=== PATIENT | female | born 1985 | race Caucasian/White ===

== ENCOUNTER 2017-04-11 00:39 | Emergency (ER) | payer OTHER ==
[~2017-04-11] VITALS: Ht 165.1 cm; Wt 45.5 kg
[~2017-04-11 00:39] MED LIST: DOCU-41 PO; DOCU240C41 PO; IBUP-1827 PO; LORA5SOL82 PO; METH10SO PO; METH40TA2 PO; OXYC-474 PO; POLY17PO6 PO; TRAZ-118 PO
[2017-04-11 00:43] VITALS: BP 113/76; PULSE 91; RESP 16; O2SAT 99
--- NOTE | 2017-04-11 00:52 | ED.REPORT ---
HPI-Dental/Mouth Prob Date of Service Apr 11, 2017 ED Provider: Titus Donahue MD A 32 year old female with a history of wisdom tooth surgery presents to the ED complaining of right-sided dental pain. The pt noticed the pain five days ago followed by right cheek swelling and drainage from the area. She is now concerned that she may have an abscess. Tylenol and ibuprofen have not significantly relieved her pain. The pt had arranged follow up with the [facility] to have teeth pulled, but did not make her appointment. Nursing Notes Stated Complaint: DENTAL PAIN Chief Complaint: Dental Nursing Notes Reviewed: Yes Allergies: Coded Allergies: No Known Allergies (Unverified , 03/17/15) Scheduled Amoxicillin (Amoxicillin) 500 Mg Capsule 500 MG PO TID Famotidine (Pepcid) 20 Mg Tablet 20 MG PO BID Fluconazole (Diflucan) 150 Mg Tablet 150 MG PO ONCE Loratadine (Loratadine) 5 Mg/5 Ml (5 Ml) Solution 10 MG PO DAILY Methadone (Methadone) 40 Mg Tablet.basil 88 MG PO DAILY Trazodone (Trazodone) 100 Mg Tablet 100 MG PO HS Scheduled PRN Docusate Calcium (Stool Softener) 240 Mg Capsule 250 MG PO BID PRN PRN For Constipation Docusate Sodium (Colace) 100 Mg Capsule 100 MG PO BID PRN PRN For Constipation Ibuprofen (Ibuprofen) 600 Mg Tablet 600 MG PO Q6H PRN PRN For Pain Methadone (Methadone) 10 Mg/5 Ml Solution 115 MG PO DAILY PRN PRN For Opiate Reversal Naproxen (Naprosyn) 500 Mg Tablet 500 MG PO BID PRN PRN For Pain Oxycodone (Roxicodone) 5 Mg Tablet 5-10 MG PO Q4H PRN PRN For Pain Polyethylene Glycol 3350 (Miralax) 17 Gm Powd.pack 17 GM PO TID PRN PRN prn General Time Seen by : 00:47 Chief Complaint Mouth pain Hx Obtained From: Patient Arrived By: Walk-in Onset Occurred: 5 days ago Symptom Duration: Since onset Recent Healthcare: No recent hospitalization, Recent doctor visit Past Medical History Past Medical History IBS sacroiliitis Reports: Asthma Past Surgical History Barney teeth removed Reports: Tonsillectomy Family History Father of ID Smoking History Current Every Day Smoker Social History Alcohol Use: Denies alcohol use Drug Use: In recovery, IV drugs Other Social History: Good social support Ambulatory Status Independent Review of Systems Review of Systems Note: tooth pain with drainage cheek swelling Respiratory: Denies: Non-productive cough, Shortness of breath GI: Denies: Abdominal pain, Vomiting Complete sys rev & neg: except as marked. Physical Exam Initial Vital Signs Vital Signs (First) Date Time Temp Pulse Resp B/P Pulse Ox O2 Delivery O2 Flow Rate FiO2 04/11/17 00:43 36.1 91 16 113/76 99 Room Air Initial VS: Reviewed ENT: Airway patent, Mucous membranes moist all teeth carious and rotting, most down to the gumline small abscess of lower right jaw no palpable abnormalities on floor of mouth no adenopathy or fluctuance Neck: Atraumatic, Supple, Full range of motion General/Constitutional: Awake, Alert Head / Eyes: Atraumatic, Normocephalic, PERRL, EOMI Respiratory / Chest: Atraumatic, Breath sounds NL, Breath sounds = bilat, No respiratory distress Cardiovascular: Heart rate NL, Regular rhythm, Heart sounds NL Neurologic: Oriented X3, Speech NL, No motor deficits, No sensory deficits Abdomen: Atraumatic, Soft, Non-tender Back: Atraumatic, Full range of motion Upper Extremity / MS: Atraumatic, Full range of motion Lower Extremity / Pelvis / MS: Atraumatic, Full range of motion Skin: Atraumatic, Color NL, No rash, Warm, Dry Psychiatric: Affect NL, Mood NL Re-Eval/Medical Decision Med Decision/Clinical Course 32-year-old with multiple carious teeth presents with a small abscess in the lower right, and apparent auto drainage. She has had foul discharge that is resulted in decrease in size of her swelling on her right lower jaw. There is no trismus no compromise of the medial tissues of the throat, no fluctuance or tenderness at the base of the tongue and normal excursion and protrusion. Home With amoxicillin. Toradol and Decadron given tonight. Ongoing Naprosyn. Follow up with dentist NABILA. Source of Hx: Old records Re-Evaluation/Progress : Time of Eval: 00:47 Patient Status: Condition improved Re-Evaluation/Progress Note: Pt informed of the diagnosis and plan for discharge during the initial interview. The pt understands and agrees with the plan. All questions are addressed at this time. Counseled Regarding: Diagnosis, Need for follow-up, When/why to return to ED Discharge & Departure Primary Impression: Dental abscess Disposition: Home Discharge Condition All VS Reviewed: Yes Condition: Stable Patient Instructions: Dental Abscess (ED) Additional Instructions: I suggest you proceed with your plan to be seen at [facility] for extractions. However, you should see your local dentist regarding this particular flare. Amoxicillin three times daily for fourteen days. Naprosyn twice daily for pain. Return for any difficulty with swallowing, breathing, or other new symptoms of concern Referrals: [facility] Scribe Attestation Portions of this note were transcribed by Rich Falk. I, Dr. Donahue personally performed the history, physical exam and medical decision-making; I reviewed and confirmed the accuracy of the information in the transcribed note. Signed by: Nereida Mcgovern, 04/11/2017 and 0203. copies to: [facility] Titus Donahue MD Apr 11, 2017 00:51 RICH FALK Apr 11, 2017 01:00
[2017-04-11] MEDS ORDERED: Dexamethasone 20 mg/2 mL Oral Solution PO ONE (01:00)
[2017-04-11] MEDS ORDERED: NAPR500T PO (01:01)
[2017-04-11] MEDS ORDERED: AMOX500C2 PO (01:01)
[2017-04-11] MEDS ORDERED: FAMO20T PO (01:01)
[2017-04-11] MEDS ORDERED: FLUC150T48 PO (01:39)
[2017-04-11 01:47] VITALS: BP 118/64; PULSE 82; RESP 14; O2SAT 99
== END 2017-04-11 01:56 | disposition home or self-care (01) ==
LOC: SED 00:39
DX: K04.7 Periapical abscess without sinus (principal); J45.909 Unspecified asthma, uncomplicated; F17.200 Nicotine dependence, unspecified, uncomplicated; Z98.818 Other dental procedure status
CPT/HCPCS: 96372; 99283; J1885